=== PATIENT | female | born 1975 | race Caucasian/White ===

== ENCOUNTER 2018-11-23 21:24 | Emergency (ER) | payer MEDICAID ==
[~2018-11-23] VITALS: Ht 167.6 cm; Wt 86.2 kg
[~2018-11-23 21:24] MED LIST: BISM262O28 PO; HYDR-4354 PO; IBUP-1957 PO; ONDA4TAB8 PO
--- NOTE | 2018-11-23 21:55 | NUR ---
PT BIBFAMILY GENERALIZED ABD PAIN, HEADACHE, GENERALIZED WEAKNESS X1WEEK. 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 +N/V. PT ON MONITOR IN BED 3 WITH FAMILY AT BEDSIDE. WILL CONTINUE TO MONITOR.
[2018-11-23] MEDS ORDERED: MORPHINE SULFATE INJ 2 MG/ML DISP.SYRIN IV ONE (22:30)
[2018-11-23] MEDS ORDERED: IV NS 0.9% 1,000 ML BAG IV ONE (22:30)
[2018-11-23] MEDS ORDERED: ONDANSETRON HCL/PF 4 MG/2 ML VIAL IVP ONE (22:30)
[2018-11-23] MEDS ORDERED: MORPHINE SULFATE INJ 4 MG/ML DISP.SYRIN ONE (22:38)
[2018-11-23] MEDS ORDERED: ONDANSETRON HCL/PF 4 MG/2 ML VIAL ONE (22:38)
[2018-11-23 22:40] LABS: BASOPHILS % (AUTO) 0.3 % (0.0-2.0); EOSINOPHILS % (AUTO) 0.4 % (0.0-6.0); HEMATOCRIT 42 % (33-45); HEMOGLOBIN 14.3 g/dL (11.5-14.8); LYMPHOCYTES # (AUTO) 0.6 /CMM (0.8-4.8); LYMPHOCYTES % (AUTO) 6.9 % (20.0-44.0); MEAN CORPUSCULAR HGB CONC 34 g/dl (31.0-36.0); MEAN CORPUSCULAR VOLUME 91 fL (82-100); MONOCYTES # (AUTO) 0.4 /CMM (0.1-1.30); MONOCYTES % (AUTO) 4.1 % (2.0-12.0); NEUTROPHILS % (AUTO) 88.3 % (43.0-81.0); PLATELET COUNT (AUTO) 205 /CMM (150-450); RED BLOOD CELL COUNT(AUTO) 4.57 MIL/uL (4.0-5.2); WHITE BLOOD COUNT (AUTO) 9.1 K/uL (4.3-11.0)
[2018-11-23 22:53] LABS: CALCIUM, SERUM 8.9 mg/dL (8.5-10.1); CARBON DIOXIDE 23 mmol/L (21-32); CHLORIDE 105 mmol/L (98-107); CREATININE 0.9 mg/dL (0.6-1.3); GLUCOSE 108 mg/dL (74-106); POTASSIUM 3.8 mmol/L (3.5-5.1); SODIUM SERUM 140 mmol/L (136-145); UREA NITROGEN, BLOOD 17 mg/dL (7-18)
[2018-11-23 22:59] LABS: ALANINE AMINOTRANSFERASE 16 U/L (12-78); ALBUMIN 3.7 g/dL (3.4-5.0); ALKALINE PHOSPHATASE 115 U/L (46-116); ASPARTATE AMINOTRANSFERASE 15 U/L (15-37); BILIRUBIN,DIRECT 0.1 mg/dL (0.0-0.2); BILIRUBIN,TOTAL 0.4 mg/dL (0.2-1.0); LIPASE 73 U/L (73-393); TOTAL PROTEIN, SERUM 7.3 g/dL (6.4-8.2)
--- NOTE | 2018-11-23 23:07 | NUR ---
RADIOLOGY AT BEDSIDE FOR XRAY
--- NOTE | 2018-11-23 23:20 | NUR ---
URINE COLLECTED AND SENT TO LAB
[2018-11-23 23:23] VITALS: BP 120/75
[2018-11-23 23:27] LABS: APPEARANCE,URINE Clear (CLEAR); BILIRUBIN,URINE Negative (NEGATIVE); BLOOD, URINE Negative Ery/uL (NEGATIVE); COLOR,URINE Yellow (YELLOW); KETONES,URINE Negative (NEGATIVE); LEUKOCYTE ESTERASE ,URINE Negative (NEGATIVE); NITRITE, URINE Negative (NEGATIVE); PH,URINE 8.5 (5.0-8.0); PROTEIN,URINE Negative (NEGATIVE); UGLUCOSE Negative (NEGATIVE); UROBILINOGEN,URINE 0.2 EU/dL (0.2)
--- NOTE | 2018-11-23 23:34 | NUR ---
PT TAKEN TO RADIOLOGY [facility]IA [facility]
--- NOTE | 2018-11-23 23:45 | NUR ---
[facility] PT TOLERATED WELL.
[2018-11-24] MEDS ORDERED: LORAZEPAM INJ 2 MG/ML VIAL ONE (00:04)
[2018-11-24] MEDS ORDERED: METRONIDAZOLE 500 MG TABLET PO ONE (00:30)
[2018-11-24] MEDS ORDERED: LORAZEPAM INJ 2 MG/ML VIAL IV ONE (00:30)
[2018-11-24] MEDS ORDERED: CIPROFLOXACIN HCL 500 MG TABLET PO ONE (00:30)
[2018-11-24] MEDS ORDERED: CIPROFLOXACIN HCL 500 MG TABLET ONE (00:34)
[2018-11-24] MEDS ORDERED: METRONIDAZOLE 500 MG TABLET ONE (00:34)
--- NOTE | 2018-11-24 00:43 | NUR ---
IV removed. Catheter intact and site benign. Pressure and 4x4 applied to site. No bleeding noted.Patient discharged to home in stable condition. Written and verbal after care instructions given. Patient verbalizes understanding of instruction. PT TAKEN VIA WHEELCHAIR.
== END 2018-11-24 00:45 | disposition home or self-care (01) ==
LOC: ER 21:28
DX: K52.9 Noninfective gastroenteritis and colitis, unspecified (principal); R11.2 Nausea with vomiting, unspecified; Z88.0 Allergy status to penicillin
CPT/HCPCS: 36415; 71045; 74176; 80048; 80076; 81001; 83690; 84484; 84703; 85025; 85730; 93005; 96361; 96374; 96375 ×2; 99284; J2060; J2270; J2405; J7030; 81000-TC

== ENCOUNTER 2019-08-09 02:54 | Emergency (ER) | payer MEDICAID ==
[~2019-08-09] VITALS: Ht 157.5 cm; Wt 104.3 kg
[2019-08-09] MEDS ORDERED: IV NS 0.9% 1,000 ML BAG IV ONE (03:30)
[2019-08-09] MEDS ORDERED: ONDANSETRON 4 MG TAB.RAPDIS PO ONE (03:30)
[2019-08-09] MEDS ORDERED: METOCLOPRAMIDE HCL 10 MG/2 ML VIAL IV ONE (03:30)
[2019-08-09] MEDS ORDERED: diphenhydrAMINE HCL 50 MG/ML VIAL IV ONE (03:30)
[2019-08-09] MEDS ORDERED: ONDANSETRON HCL/PF 4 MG/2 ML VIAL ONE (03:37)
[2019-08-09] MEDS ORDERED: METOCLOPRAMIDE HCL 10 MG/2 ML VIAL ONE (03:37)
[2019-08-09] MEDS ORDERED: diphenhydrAMINE HCL 50 MG/ML VIAL ONE (03:37)
--- NOTE | 2019-08-09 03:54 | NUR ---
BIBSELF C/O R SIDE HEADACHE X1 WEEK, WORSE TODAY. +DIZZY, +NAUSEA RECENTLY DISCHARGED FROM [facility] FOR SIMILAR COMPLAINT 2 DAYS AGO, TO ER BED 3 ORDERES RECEIVED AND CARRIED OUT
[2019-08-09 03:57] LABS: BASOPHILS % (AUTO) 0.5 % (0.0-2.0); EOSINOPHILS % (AUTO) 2.8 % (0.0-6.0); HEMATOCRIT 39 % (33-45); HEMOGLOBIN 13.3 g/dL (11.5-14.8); LYMPHOCYTES # (AUTO) 2.1 /CMM (0.8-4.8); LYMPHOCYTES % (AUTO) 32.5 % (20.0-44.0); MEAN CORPUSCULAR HGB CONC 34 g/dl (31.0-36.0); MEAN CORPUSCULAR VOLUME 92 fL (82-100); MONOCYTES # (AUTO) 0.4 /CMM (0.1-1.30); MONOCYTES % (AUTO) 6.8 % (2.0-12.0); NEUTROPHILS # (AUTO) 3.7 /CMM (1.8-8.9); NEUTROPHILS % (AUTO) 57.4 % (43.0-81.0); PLATELET COUNT (AUTO) 185 /CMM (150-450); RED BLOOD CELL COUNT(AUTO) 4.26 MIL/uL (4.0-5.2); WHITE BLOOD COUNT (AUTO) 6.4 K/uL (4.3-11.0)
[2019-08-09 04:04] LABS: ALBUMIN 3.5 g/dL (3.4-5.0); BILIRUBIN,DIRECT 0.1 mg/dL (0.0-0.2); BILIRUBIN,TOTAL 0.3 mg/dL (0.2-1.0); CALCIUM, SERUM 8.6 mg/dL (8.5-10.1); CREATININE 0.9 mg/dL (0.6-1.3); POTASSIUM 3.4 mmol/L (3.5-5.1); TOTAL PROTEIN, SERUM 6.6 g/dL (6.4-8.2)
[2019-08-09] MEDS ORDERED: MORPHINE SULFATE INJ 4 MG/ML DISP.SYRIN ONE (04:22)
[2019-08-09] MEDS ORDERED: MORPHINE SULFATE INJ 2 MG/ML DISP.SYRIN IV ONE (04:30)
--- NOTE | 2019-08-09 04:53 | NUR ---
pt back from radiology
--- NOTE | 2019-08-09 06:07 | NUR ---
Patient discharged to home in stable condition. Written and verbal after care instructions given. Patient verbalizes understanding of instruction.
[2019-08-09 06:09] VITALS: BP 145/74
== END 2019-08-09 06:10 | disposition home or self-care (01) ==
LOC: ER 02:54
DX: G43.909 Migraine, unspecified, not intractable, without status migrainosus (principal); R42 Dizziness and giddiness; R11.0 Nausea; Z88.0 Allergy status to penicillin; Z79.899 Other long term (current) drug therapy
CPT/HCPCS: 36415; 70450; 80048; 80076; 85025; 96361; 96374; 96375; 99284; A4216; J1200; J2270; J2405; J2765; J7030